=== PATIENT | female | born 1980 | race Caucasian/White ===

== ENCOUNTER → 2021-06-20 | Outpatient (CLI) | payer OTHER ==
[~2021-06-20] MED LIST: ASPIR-TRIN325 MG PO; KEFLEX CAP 500500 MG PO; KEFLEX500 MG PO; LODINE CAP 300300 MG PO; NORCO 7.5-3251 EACH PO; OXCARBAZEPINE600 MG PO; VIMPAT200 MG PO; VITAMIN C500 M4 PO; VITAMIN D PO
[2021-06-20 18:51] LABS: HEMOGLOBIN 12.4 gm/dl (12.3-15.3); RED BLOOD COUNT 4.55 M/UL (4.00-5.10); WHITE BLOOD COUNT 11.9 K/UL (4.5-11.0)
[2021-06-20 19:17] LABS: BUN/CREATININE RATIO 22 (0-10)
== END ==
LOC: LAB 18:17
PROVIDERS: Nurse Practitioner
DX: I10 Essential (primary) hypertension (principal); M25.561 Pain in right knee; M79.661 Pain in right lower leg; R22.41 Localized swelling, mass and lump, right lower limb
CPT/HCPCS: 80053; 85025; 85379

== ENCOUNTER → 2021-06-21 | Outpatient (CLI) | payer OTHER | LOC: HEART 5 10:47 | DX: M25.561 Pain in right knee (principal); M79.661 Pain in right lower leg; R22.41 Localized swelling, mass and lump, right lower limb | CPT/HCPCS: 93971 ==